=== PATIENT | female | born 1970 | race Caucasian/White ===

== ENCOUNTER 2020-02-23 02:51 | Emergency (ER) | payer OTHER, SELFPAY | END 2020-02-23 03:31 | disposition home or self-care (01) | LOC: NAV ERS 02:51 | DX: I10 Essential (primary) hypertension (principal); R07.89 Other chest pain; F32.9 Major depressive disorder, single episode, unspecified; F41.9 Anxiety disorder, unspecified; Z79.899 Other long term (current) drug therapy | CPT/HCPCS: 93005; 94760 ==